=== PATIENT | male | born 1955 ===

== ENCOUNTER 2021-10-07 21:16 | Emergency (ER) | payer MEDICARE ==
[~2021-10-07] VITALS: Ht 172.7 cm; Wt 70.9 kg
[~2021-10-07 21:16] MED LIST: BACTRIM DS 8001 TAB PO
[2021-10-07] MEDS ORDERED: CEPHALEXIN500 M1 PO (21:53)
[2021-10-07] MEDS ORDERED: MONISTAT 7 VAG45 GM TOP (21:55)
[2021-10-07 22:09] VITALS: BP 126/75; PULSE 82; TEMP 98.5
== END 2021-10-07 22:09 | disposition home or self-care (01) ==
LOC: COL.ER 21:16
DX: N47.6 Balanoposthitis (principal); Z85.46 Personal history of malignant neoplasm of prostate